=== PATIENT | female | born 1990 | race Caucasian/White ===

== ENCOUNTER 2017-02-11 09:11 | Inpatient (IN) | payer MEDICAID ==
[~2017-02-11] VITALS: Ht 154.9 cm; Wt 64.5 kg
[2017-02-11] MEDS ORDERED: HYDROCODONE/APAP (5/325) TAB PO PRN ×3 (09:30→23:30)
[2017-02-11] MEDS ORDERED: METHYLERGONOVINE 0.2 MG INJ IM PRN (09:30)
[2017-02-11] MEDS ORDERED: BUTORPHANOL 2 MG INJ IV PRN (09:30)
[2017-02-11] MEDS ORDERED: MISOPROSTOL 200 MCG TAB PR PRN (09:30)
[2017-02-11] MEDS ORDERED: OXYTOCIN 30 UNITS/LR 500 ML IV SCH ×3 (09:30→10:30)
[2017-02-11] MEDS ORDERED: OXYTOCIN 30 UNITS/LR 500 ML IV PRN (09:30)
[2017-02-11] MEDS ORDERED: MINERAL OIL LIGHT 10 ML VIAL TOP ONE (09:30)
[2017-02-11] MEDS ORDERED: CARBOPROST 250 MCG INJ IM PRN (09:30)
[2017-02-11] MEDS ORDERED: LIDOCAINE 1% (MPF) 30 ML INJ INJ PRN (09:30)
[2017-02-11] MEDS ORDERED: IBUPROFEN 600 MG TAB PO ONE (10:00)
[2017-02-11 10:03] VITALS: Ht 154.9 cm; Wt 64.5 kg
[2017-02-11 10:11] LABS: BASOPHILS % 0.5 % (0.0-2.0); EOSINOPHILS # 0.1 10^3/ul (0.0-0.5); EOSINOPHILS % 1.3 % (0.0-7.0); HEMATOCRIT 32.4 % (37.0-47.0); HEMOGLOBIN 11.2 g/dl (12.0-16.0); LYMPHOCYTES % 17.2 % (15.0-51.0); MEAN CORPUSCULAR HEMOGLOBIN 33.4 pg (29.0-33.0); MEAN CORPUSCULAR HGB CONC 34.6 g/dl (32.0-37.0); MEAN CORPUSCULAR VOLUME 96.7 fl (82.0-101.0); MEAN PLATELET VOLUME 12.7 fl (7.4-10.4); MONOCYTE # 0.3 10^3/ul (0.3-0.9); MONOCYTES % 5.7 % (0.0-11.0); NEUTROPHIL # 4.2 10^3/ul (1.6-7.5); NEUTROPHILS % 74.8 % (39.0-77.0); PLATELET COUNT 123 10^3/UL (140-415); RED BLOOD COUNT 3.35 10^6/ul (4.20-5.40); RED CELL DISTRIBUTION WIDTH 13.1 % (11.5-14.5); WHITE BLOOD COUNT 5.6 10^3/ul (4.8-10.8)
[2017-02-11] MEDS: LACTATED RINGER'S 1,000 ML IV SCH ×2 (10:23→15:30)
[2017-02-11] MEDS ORDERED: IBUPROFEN 600 MG TAB PO PRN (10:30)
[2017-02-11 10:31] LABS: INR 0.91; PROTIME 12.2 Sec (12.2-14.2)
[2017-02-11 10:32] LABS: PARTIAL THROMBOPLASTIN TIME 26.3 Sec (25.0-35.0)
[2017-02-11] MEDS ORDERED: AMPICILLIN 2 GM/NS (PMX) 100 ML IV ONE (11:00)
[2017-02-11] MEDS ORDERED: LACTATED RINGER'S 1,000 ML IV PRN (12:00)
[2017-02-11] MEDS ORDERED: FENTAnyl 2MCG/ML-ROPIV 0.2% 100 ML ONE (12:22)
[2017-02-11] MEDS ORDERED: FENTAnyl 2MCG/ML-ROPIV 0.2% 100 ML BAG EPI SCH (13:00)
[2017-02-11] MEDS ORDERED: NALOXONE (0.4 MG/ML) INJ IV PRN (13:00)
[2017-02-11] MEDS: AMPICILLIN 1 GM/NS (PMX) 50 ML IV SCH ×2 (15:46→19:00)
[2017-02-11] MEDS ORDERED: CEFAZOLIN 2 GM/50 ML (PMX) 0 ML IVPB ONE (15:58)
--- NOTE | 2017-02-11 16:31 | HP ---
Date/Time of Note Date/Time of Note DATE: 02/11/17 TIME: 16:14 OB - History Hx of Present Free Text/Dictation 26 years old female 200 1 2 admitted to [facility] at 41 week and 3 days for induction of labor week examination on admission cervix 3 cm dilated 60% effaced vertex at -3 station having contractions every 4-6 minute with mild to moderate quality, plan of augmentation of labor discussed low dose Pitocin infusion IV drip This patient has been under the care of the [facility] and her is complicated with gestational diabetes diet-controlled Chief Complaint: 41 weeks and 3 days early labor may requireing labor augmentation Estimated Due Date: Feb 01, 2017 : 4 Para: 2 Therapeutic : 1 Care: Good Care Ultrasounds: Normal mid trimester US Obstetrical Complications: Gestational Diabetes Medical Complications: None Past Family/Social History * Past Medical, Surgical, Family and Obstetric Histories reviewed from chart. Rubella: immune RPR/VDRL: Negative GBS Status: Negative HBsAG: Negative OB Admission Exam Physical Exam HEENT: WNL Heart: Rhythm Normal Lungs: Clear, Equal Abdomen: WNL Extremities: Normal Reflexes: Normal Cervical Dilatation: 3cm Effacement: Other (60%) Station: -2 Membranes: Intact Heart Rate: 120's Accelerations: Accelerations Present Decelerations: Variable Decelerations Varibility: Moderate Contractions on Admission: >10 Minutes Apart Last 72 hours Lab Results CBC & BMP 02/11/17 09:45 OB Assessment/Plan Reason for admission: other (Labor augmentation) Other plan: This is a 26 years old female EDC of February 01, 2017 admitted to the hospital at first for induction of labor due to being postdate however on admission it was noted she is in early labor but not active, plan of trial of labor augmentation with low-dose Pitocin discussed she would like to proceed . DANYELLE GARCIA MD Feb 11, 2017 16:24
[2017-02-11 17:30] LABS: AADO2 Cord Arterial 52.6 mmHg; Arterial Cord Blood pCO2 49.2 mmHG (25-50); CBA Base Excess -6.6 mmol/L; CBA Oxygen Sat 72.5 mmHG; CBA Total Hemglobin 16.7 g/dl; Cord Blood Arterial pO2 38.2 mmHG (15.0-45.0); Fraction OxyHgb Cord Arterial 70.7 %; MODE ROOM AIR; MetHgb Cord Arterial 1.1 %; Sample Type CBA
[2017-02-11 17:41] LABS: CBV Base Excess -10.3 mmol/L; CBV COHb 0.3 %; CBV Total Hemglobin 14.9 g/dl; Cord Blood Venous AADO2 22.9 mmHg; Cord Blood Venous pO2 12.5 mmHG (15.0-45.0); MODE ROOM AIR; MetHgb Cord Venous 2.4 %; Sample Type CBV
--- NOTE | 2017-02-11 17:46 | LDN ---
Date/Time of Note Date/Time of Note DATE: 02/11/17 TIME: 17:18 Delivery Summary 26 years old was admitted at 41 weeks and 3 days for induction of labor on admission cervical dilatation was 3 cm 60% effaced vertex is -1 -2 station, cervical dilatation progress to complete presenting part at +2 station patient encouraged to push with the contraction but not able to complete the delivery of the head, due to the frequency of variable deceleration which AT time below 100 assisted vaginal delivery decided by using vacuum(kiwi) which appropriately applied ,1 attempt, successful delivery of the head ,shoulders delivered without any difficulty, baby had nuchal cord 3 times tight around the neck meconium stain, after baby was delivered cord clamped after stopped pulsation, portion of the cord sent to lab for blood gas, baby's reported 2 at first minute and 8 at 5 minutes team were present to assist the baby. Placenta spontaneous expulsion inspected complete but covered with thick meconium sent to the pathology, estimated blood loss 3-400 cc patient sustained first-degree perineal laceration and 2 small para urethral laceration which repaired 3-0 chromic catgut and 4-0 chromic catgut Assisted Vaginal Delivery: Vacuum Meconium: Thick, Particulate Episiotomy: No Estimated blood loss: 400 Sponge & Needle done & correct: Yes All needle counts correct: Yes Any foreign bodies felt in the: No Problems: Infant Delivery Information Sex Sex: female Apgars 1 Minute: 2 5 Minute: 8 Suctioning Nose & mouth suctioned at bill: Yes Delee suction performed: Yes Umbilical Cord Cord presentations: nuchal cord (3 times tight around the baby's neck) Nuchal cord present X: 3 Cord Blood was obtained: Yes DANYELLE GARCIA MD Feb 11, 2017 17:40
[2017-02-11] MEDS ORDERED: OXYCODONE/ASPIRIN (4.88/325) TAB PO ONE (19:30)
[2017-02-11 21:10] VITALS: BP 139/83; PULSE 77; RESP 19
[2017-02-11] MEDS ORDERED: ONDANSETRON 4 MG INJ IV PRN (23:30)
[2017-02-11] MEDS ORDERED: LANOLIN 7 GM TUBE TOP PRN (23:30)
[2017-02-11] MEDS ORDERED: ACETAMINOPHEN 325 MG TAB PO PRN (23:30)
[2017-02-11] MEDS ORDERED: DIBUCAINE 1% 30 GM OINT PR PRN (23:30)
[2017-02-11] MEDS ORDERED: WITCH HAZEL/GLYCERIN PAD PR PRN (23:30)
[2017-02-11] MEDS ORDERED: BENZOCAINE 20% 56 ML SPRAY TOP PRN (23:30)
[2017-02-11] MEDS ORDERED: OXYCODONE/ASPIRIN (4.88/325) TAB PO PRN ×2 (23:30)
[2017-02-12] MEDS: IBUPROFEN 600 MG TAB PO SCH ×4 (00:03→18:10)
[2017-02-12] MEDS: OXYTOCIN 30 UNITS/LR 500 ML IV SCH ×2 (00:07→04:02)
[2017-02-12 00:45] VITALS: BP 123/77; PULSE 73; RESP 19
[2017-02-12 04:45] VITALS: BP 127/63; PULSE 70; RESP 19
[2017-02-12 08:00] VITALS: BP 133/79; PULSE 80; RESP 18
[2017-02-12] MEDS ORDERED: INFLUENZA VIRUS VACCINE 0.5 ML (DISPENSING) IM* ONE (09:00)
[2017-02-12 09:19] LABS: ABNORMAL IP MESSAGE 1; BASOPHILS % 0.3 % (0.0-2.0); EOSINOPHILS % 0.5 % (0.0-7.0); HEMATOCRIT 29.1 % (37.0-47.0); HEMOGLOBIN 9.9 g/dl (12.0-16.0); LYMPHOCYTES # 0.8 10^3/ul (0.8-2.9); LYMPHOCYTES % 11.3 % (15.0-51.0); MEAN CORPUSCULAR HEMOGLOBIN 32.9 pg (29.0-33.0); MEAN CORPUSCULAR VOLUME 96.7 fl (82.0-101.0); MEAN PLATELET VOLUME 12.4 fl (7.4-10.4); MONOCYTE # 0.4 10^3/ul (0.3-0.9); MONOCYTES % 5.1 % (0.0-11.0); NEUTROPHIL # 6.2 10^3/ul (1.6-7.5); NEUTROPHILS % 82.4 % (39.0-77.0); PLATELET COUNT 96 10^3/UL (140-415); RED BLOOD COUNT 3.01 10^6/ul (4.20-5.40); RED CELL DISTRIBUTION WIDTH 13.1 % (11.5-14.5); WHITE BLOOD COUNT 7.5 10^3/ul (4.8-10.8)
[2017-02-12 09:24] LABS: POSITIVE DIFF @See below
[2017-02-12] MEDS: SENNA/DOCUSATE NA (8.6MG/50MG) TAB PO SCH ×2 (10:07→21:55)
--- NOTE | 2017-02-12 12:50 | QN ---
Documentation Comment Post normal vaginal delivery day 1 Afebrile Vital signs are stable Abdomen soft Uterus firm Lochia normal Extremity normal Hemoglobin 9.9, hematocrit 29.1, platelet 96,000 DANYELLE GARCIA MD Feb 12, 2017 12:50
[2017-02-12 16:00] VITALS: BP 110/55; PULSE 77; RESP 18
[2017-02-12 20:00] VITALS: BP 118/76; PULSE 93; RESP 20
[2017-02-13] MEDS: IBUPROFEN 600 MG TAB PO SCH ×3 (00:47→12:34)
[2017-02-13 04:00] VITALS: BP 107/63; PULSE 78; RESP 19
[2017-02-13 08:00] VITALS: BP 130/62; RESP 18
[2017-02-13] MEDS: SENNA/DOCUSATE NA (8.6MG/50MG) TAB PO SCH (08:53)
[2017-02-13] MEDS ORDERED: MEASLES,MUMPS,RUBELLA VACCINE INJ SC* ONE (09:00)
--- NOTE | 2017-02-13 10:47 | PD.PPDC ---
NEW GRAD RN Discharge Instruction Condition Patient Condition: Good Diet Diet: Resume Regular Diet Activity/Restrictions Restrictions: No Exercising No Lifting No Driving No Sexual Activity Nothing in the Vagina No [place] No Tampons, douche Follow-up Follow-up with Physician: 2, Week/Weeks Provider Information: instruction given recommended to make appointment to be seen at the clinic in 2 weeks for check Return to clinic for UNIT MANAGER Instructions: Fever greater than 101 Chills Worsening abdominal pain Excessive Vaginal Bleeding More than 2 pads per hour Unable to tolerate diet OB Instructions: Breast Tenderness Depression Blurried Vision Headache DANYELLE GARCIA MD Feb 13, 2017 10:47
--- NOTE | 2017-02-13 10:49 | DS ---
Date/Time of Note Date/Time of Note DATE: 02/13/17 TIME: 10:47 Discharge Summary Admission/Discharge Info Admit Date/Time Feb 11, 2017 at 09:11 Discharge Date/Time February 13, 2017 at 10:50 AM Discharge Diagnosis Day 2 post normal vaginal delivery Patient Condition: Good Procedures Normal vaginal delivery Hx of Present Illness Term admitted in labor Hospital Course Satisfactory uneventful Follow-up Plan instruction given recommended to make appointment to be seen at the clinic in 2 weeks Primary Care Provider Not On Staff Doctor Time spent on discharge: < 30 minutes DANYELLE GARCIA MD Feb 13, 2017 10:49
== END 2017-02-13 15:49 | disposition home or self-care (01) | DRG 775 ==
LOC: L-D 09:11 → PP1 21:34
PROVIDERS: ADMIT Obstetrics & Gynecology; ATTEND Obstetrics & Gynecology
PROC: 10D07Z6 Extraction of Products of Conception, Vacuum, Via Natural or Artificial Opening (ICD-10-PCS; principal; 2017-02-11)
PROC: 3E0P3VZ Introduction of Hormone into Female Reproductive, Percutaneous Approach (ICD-10-PCS; 2017-02-11)
DX: O48.0 Post-term pregnancy (principal); O24.429 Gestational diabetes mellitus in childbirth, unspecified control; Z3A.41 41 weeks gestation of pregnancy; Z37.0 Single live birth
CPT/HCPCS: 36415; 36600; 62319; 82803; 82947; 85025; 85610; 85730; 86592; 86900; 86901; 90686; J0290; J0690; J2210; J2590; J3010; J7120

== ENCOUNTER 2018-04-29 02:00 | Inpatient (IN) | payer MEDICAID ==
[~2018-04-29] VITALS: Ht 154.9 cm; Wt 68.0 kg
[2018-04-29] MEDS ORDERED: OXYTOCIN 30 UNITS/LR 500 ML IV ONE (02:14)
[2018-04-29] MEDS ORDERED: LIDOCAINE 1% (MPF) 30 ML INJ ONE (02:14)
[2018-04-29] MEDS ORDERED: AMPICILLIN 2 GM/NS (PMX) 100 ML ONE (02:16)
[2018-04-29 02:19] VITALS: BP 129/79; PULSE 82; RESP 20
[2018-04-29] MEDS: LACTATED RINGER'S 1,000 ML IV SCH ×2 (02:27→13:37)
[2018-04-29] MEDS ORDERED: OXYTOCIN 30 UNITS/LR 500 ML IV SCH ×2 (02:30)
[2018-04-29] MEDS ORDERED: LIDOCAINE 1% (MPF) 30 ML INJ INJ PRN (02:30)
[2018-04-29] MEDS ORDERED: METHYLERGONOVINE 0.2 MG INJ IM PRN ×2 (02:30→04:30)
[2018-04-29] MEDS ORDERED: AMPICILLIN 2 GM/NS (PMX) 100 ML IV ONE (02:30)
[2018-04-29] MEDS ORDERED: MISOPROSTOL 200 MCG TAB PR PRN ×2 (02:30→04:30)
[2018-04-29] MEDS ORDERED: BUTORPHANOL 2 MG INJ IV PRN (02:30)
[2018-04-29] MEDS ORDERED: OXYTOCIN 30 UNITS/LR 500 ML IV PRN ×2 (02:30→04:30)
[2018-04-29] MEDS ORDERED: CARBOPROST 250 MCG INJ IM PRN ×2 (02:30→04:30)
[2018-04-29] MEDS ORDERED: MINERAL OIL LIGHT 10 ML VIAL ONE (03:08)
[2018-04-29] MEDS ORDERED: MINERAL OIL LIGHT 10 ML VIAL TOP ONE (03:30)
--- NOTE | 2018-04-29 04:17 | HP ---
Date/Time of Note Date/Time of Note DATE: 04/29/18 TIME: 04:15 OB - History Hx of Present Free Text/Dictation 27-year-old with single intrauterine at 39 weeks and 2 days complaining of uterine contractions. She states good movement. She denies nausea, vomiting, shortness of breath, chest pain, headache, visual changes, vaginal bleeding or LOF. Chief Complaint: Uterine contraction Estimated Due Date: May 04, 2018 : 5 Para: 3 Spontaneous : 1 Therapeutic : 0 Care: Good Care Ultrasounds: Normal mid trimester US Obstetrical Complications: None Medical Complications: None Past Family/Social History * Past Medical, Surgical, Family and Obstetric Histories reviewed from chart. Blood Type: O+ Rubella: immune RPR/VDRL: Negative GBS Status: Positive HBsAG: Negative OB Admission Exam Vital Signs Vital Signs Vital Signs Date Temp Pulse Resp B/P (MAP) Pulse Ox O2 O2 Flow FiO2 Time Delivery Rate 04/29/18 97.8 82 20 129/79 Room Air 02:19 (96) Physical Exam HEENT: WNL Heart: Rhythm Normal Lungs: Clear Abdomen: WNL Extremities: Normal Cervical Dilatation: 6cm Effacement: 75% Station: -3 Membranes: Intact Heart Rate: 140's Accelerations: Accelerations Present Decelerations: No Decelerations Varibility: Moderate Contractions on Admission: < 5 Minutes Apart Intensity: Moderate Last 72 hours Lab Results CBC & BMP 04/29/18 02:20 OB Assessment/Plan Other plan: 27-year-old 013 at 39 weeks and 2 days in active labor - FHR: No sign of metabolic acidosis- Category I - Continuous EFM, toco - CBC, blood type and screen - Analgesia options with R/B/A discussed in detail with patient - Epidural per patient request - Please see the orders - O+/Rubella: Immune - GBS: Positive Admission, procedures, expectations, risks and possible complications have been discussed in detail with the patient. Risk of vaginal delivery including but not limited to bleeding, infection, cervical laceration, placental retention, injury to fetus, blood transfusion, blood transfusion related infection, risk of anesthesia, adhesion, cervical laceration, episiotomy/laceration, possible delivery with risk of bleeding, infection, injury to other organs (bowel, bladder, ureter, vessels, nerves), injury to fetus, blood transfusion, blood transfusion related infection, risk of anesthesia, scar and hernia formation, needs for future , removal of uterus or any other indicated surgery discussed with the patient. She expressed understanding and repeats the risks. All of her questions were answered. She signed the informed consent. PHYSICIAN'S VERIFICATION OF INFORMED CONSENT The patient was counseled regarding the procedure, its indications, risks, potential complications and alternatives and any questions were answered. Consent was obtained. PLANNED PROCEDURE/TREATMENT: Vaginal delivery, episiotomy, repair of laceration possible delivery BRIAN CELIS Apr 29, 2018 04:17
[2018-04-29] MEDS ORDERED: DEXTROSE 5%-LR 1,000 ML IV SCH (04:20)
--- NOTE | 2018-04-29 04:20 | LDN ---
Date/Time of Note Date/Time of Note DATE: 04/29/18 TIME: 04:17 Delivery Summary 27-year-old at 39 weeks and 2 days delivered a viable male over right mediolateral episiotomy. Nose and mouth suctioned. Rest of body delivered. Cord clamped and cut after stopping pulsation. Baby given to the nurse. Placenta delivered spontaneously and intact with three-vessel cord. Laceration repaired with 2-0 Vicryl. Patient tolerated procedure well Time of delivery 03:21 Weight 9 pound and 1 ounces - 4120 g Height 21.5 inches 8 at 1 minutes and 9 at 5 minutes EBL 300 mm Weeks of Gestation 39 weeks and 2 days Placenta Delivered: Spontaneously Episiotomy: Yes Indication for episiotomy To facilitate vaginal delivery Anesthesia type: Local Estimated blood loss: 300 Sponge & Needle done & correct: Yes All needle counts correct: Yes Any foreign bodies felt in the: No Infant Delivery Information Sex Sex: male Apgars 1 Minute: 8 5 Minute: 9 10 Minute: 10 Suctioning Nose & mouth suctioned at bill: Yes Umbilical Cord Umbilical cord with: 3 Vessels Cord presentations: no nuchal cord Cord Blood was obtained: Yes Mother & Baby Disposition Disposition Mom & Baby to Maternity; Good: Yes BRIAN CELIS Apr 29, 2018 04:20
--- NOTE | 2018-04-29 04:25 | TRIAGE ---
OB Triage Datetime Report Generated by CPN: 04/29/2018 04:25 Datetime: 04/29/2018 04:23 Stage of : Recovery Pain Assessment Pain Scale: 3 Pain Presence: Constant Pain Type: Burning; Cramping; Sharp Pain Location: Abdomen; Perineum Pain Relief Measures: Comfort Measures Datetime: 04/29/2018 04:07 Stage of : Recovery Pain Assessment Pain Scale: 3 Pain Presence: Constant Pain Type: Burning; Cramping; Sharp Pain Location: Abdomen; Perineum Pain Relief Measures: Comfort Measures Datetime: 04/29/2018 04:01 Stage of : Recovery Datetime: 04/29/2018 03:59 Stage of : Recovery (Annotations: DR. HADADIAN AT BEDSIDE. ORDERS FOR CYTOTOC 400MCG SUBLI NGUAL AND 600MCG RECTALLY RECEIVED) Datetime: 04/29/2018 03:47 Stage of : Recovery Temperature Route: Oral Pain Assessment Pain Scale: 3 Pain Presence: Constant Pain Type: Burning; Cramping; Sharp Pain Location: Abdomen; Perineum Pain Relief Measures: Comfort Measures Pain Assessment Comments: PT REFUSES PAIN MEDICATION AT THIS TIME Datetime: 04/29/2018 03:21 Stage of : Labor Datetime: 04/29/2018 03:10 Stage of : Labor Labor Evaluation Frequency: 2-4 Monitor Mode: External Duration (sec)2399: 70-110 Quality: Strong Pattern: Normal: <= 5 Contractions in 10 Minutes Resting Tone Connell: Relaxed Interventions: Oxygen Applied; IV Bolus Heart Rate FHR Baseline Rate: 135 Monitor Mode: External US Variability: Moderate 6-25 bpm Decelerations: Early; Variable Category: Category II Datetime: 04/29/2018 02:52 Stage of : Labor Labor Evaluation Frequency: 3-5 Monitor Mode: External Duration (sec)2399: 90-120 Quality: Strong Pattern: Normal: <= 5 Contractions in 10 Minutes Resting Tone Connell: Relaxed Interventions: Oxygen Applied; IV Bolus Heart Rate FHR Baseline Rate: 140 Monitor Mode: External US Variability: Moderate 6-25 bpm Decelerations: Early; Variable Category: Category II Datetime: 04/29/2018 02:48 Stage of : Labor Membrane Status: Ruptured Membranes Ruptured Date/Time: 04/29/2018 02:48 Membranes Rupture Method: Spontaneous Amniotic Fluid Color: Clear Amniotic Fluid Amount: Small Amniotic Fluid Odor: None Datetime: 04/29/2018 02:46 Stage of : Labor Assessment Type: Admission Assessment Vaginal Bleeding: None Maternal Assessment Level of Consciousness: Fully Conscious DTR's/Clonus: DTRs 2+; No Clonus Headache: Denies Blurred Vision: No Respiratory Effort: Unlabored; Regular Rhythm; Equal Expansion Breath Sounds, Left: Clear and Equal Breath Sounds, Right: Clear and Equal Nausea/Vomiting: Denies RUQ Epigastric Pain: Denies Lower Extremities Edema: None Upper Extremities Edema: None Facial Edema: None Fall Risk Assessment History of Falling: (0) No Secondary Diagnosis: (0) No Ambulatory Aid: (0) Bedrest/Nurse Assist IV Therapy: (0) No Gait: (0) Normal/Bedrest/Immobile Mental Status: (0) Oriented to Own Ability Fall Score: 0 Fall Risk Score Definition: No Risk: No action required Labor Evaluation Frequency: 5-6 Monitor Mode: External Duration (sec)2399: 110-130 Quality: Strong Pattern: Normal: <= 5 Contractions in 10 Minutes Resting Tone Connell: Relaxed Heart Rate FHR Baseline Rate: 140 Monitor Mode: External US Variability: Minimal - Undetectable to <=5 bpm Accelerations: 15X15 Decelerations: None Pain Assessment Pain Scale: 8 Pain Presence: Intermittent Pain Type: Contraction Pain Location: Abdomen Pain Goal: 4 Membrane Status: Bulging Datetime: 04/29/2018 02:30 Stage of : Labor Maternal Assessment Level of Consciousness: Fully Conscious DTR's/Clonus: DTRs 2+; No Clonus Headache: Denies Breath Sounds, Left: Clear and Equal Breath Sounds, Right: Clear and Equal Nausea/Vomiting: Denies RUQ Epigastric Pain: Denies Labor Evaluation Frequency: 5-6 Monitor Mode: External Duration (sec)2399: 110-130 Quality: Strong Pattern: Normal: <= 5 Contractions in 10 Minutes Resting Tone Connell: Relaxed Heart Rate FHR Baseline Rate: 140 Monitor Mode: External US Variability: Minimal - Undetectable to <=5 bpm Accelerations: 15X15 Decelerations: None Category: Category II Pain Assessment Pain Scale: 8 Pain Presence: Intermittent Pain Type: Contraction Pain Location: Abdomen Pain Goal: 4 Vaginal Exam Dilatation (cms): 10.0 Effacement (%): 100 Station: 0 Exam By: ROSELYN GILLESPIE Membrane Status: Bulging Datetime: 04/29/2018 02:22 Time of Arrival: 04/29/2018 01:50 EGA: 39.2 Arrived By: Wheelchair Arrived From: Home Chief Complaint: CONTRACTIONS SINCE 2099 Movement: Present Contractions: Regular Time Contractions Began: 04/28/2018 21:00 Contractions: Q 5 MIN Rupture of Membranes: Denies Vaginal Discharge: Denies Time Provider Notified: 04/29/2018 02:03 Provider Notified: HADADIAN Initial Plan: EFM, VE Datetime: 04/29/2018 02:15 Effacement (%): 90 Station: -1 Membrane Status: Intact Datetime: 04/29/2018 02:14 Vaginal Exam Dilatation (cms): 6.0 Datetime: 04/29/2018 02:08 Vaginal Exam Dilatation (cms): 6.0 Effacement (%): 90 Station: -1 Exam By: JUAN Vaginal Bleeding: None Cervix, Consistency: Soft Cervix, Position: Anterior Presentation 'A': Cephalic Datetime: 04/29/2018 02:00 Assessment Type: Triage Maternal Assessment Level of Consciousness: Fully Conscious DTR's/Clonus: DTRs 2+; No Clonus Headache: Denies Blurred Vision: No Respiratory Effort: Unlabored; Regular Rhythm; Equal Expansion Breath Sounds, Left: Clear and Equal Breath Sounds, Right: Clear and Equal Nausea/Vomiting: Denies RUQ Epigastric Pain: Denies Lower Extremities Edema: None Upper Extremities Edema: None Facial Edema: None Fall Risk Assessment History of Falling: (0) No Secondary Diagnosis: (0) No Ambulatory Aid: (0) Bedrest/Nurse Assist IV Therapy: (0) No Gait: (0) Normal/Bedrest/Immobile Mental Status: (0) Oriented to Own Ability Fall Score: 0 Fall Risk Score Definition: No Risk: No action required
[2018-04-29] MEDS ORDERED: OXYCODONE/ASPIRIN (4.88/325) TAB PO PRN (04:30)
[2018-04-29] MEDS ORDERED: DIBUCAINE 1% 30 GM OINT TOP PRN (04:30)
[2018-04-29] MEDS ORDERED: BENZOCAINE 20% 56 ML SPRAY TOP PRN (04:30)
[2018-04-29] MEDS ORDERED: LANOLIN HPA 1 PKT TOP PRN (04:30)
[2018-04-29] MEDS ORDERED: WITCH HAZEL/GLYCERIN PAD PR PRN (04:30)
[2018-04-29] MEDS ORDERED: ZOLPIDEM 5 MG TAB PO PRN (04:30)
[2018-04-29] MEDS ORDERED: ONDANSETRON 4 MG INJ IV PRN (04:30)
[2018-04-29] MEDS ORDERED: ACETAMINOPHEN 325 MG TAB PO PRN (04:30)
[2018-04-29] MEDS ORDERED: DIPHENHYDRAMINE 50 MG INJ IV PRN (04:30)
[2018-04-29] MEDS ORDERED: ONDANSETRON 4 MG INJ IV ONE (06:27)
[2018-04-29] MEDS ORDERED: AMPICILLIN 1 GM/NS (PMX) 50 ML IV SCH (06:30)
[2018-04-29] MEDS ORDERED: OXYCODONE/ASPIRIN (4.88/325) TAB PO ONE (06:30)
[2018-04-29] MEDS: LACTATED RINGER'S 1,000 ML IV* SCH ×3 (08:33→20:15)
[2018-04-29] MEDS ORDERED: SOD CHLORIDE 0.9% 1,000 ML IV STA (08:45)
[2018-04-29] MEDS ORDERED: CEFAZOLIN 2 GM/50 ML (PMX) 50 ML IVPB ONE (09:52)
[2018-04-29] MEDS ORDERED: CEFAZOLIN 2 GM/50 ML (PMX) 50 ML IVPB SCH (09:56)
--- NOTE | 2018-04-29 10:14 | QN ---
Documentation Comment I was called to evaluate the patient for hemorrhage Total EBL 300cc reported at delivery Recovery room blood loss 644 cc Patient had received 1000 mcg of Cytotec, Methergine x3 doses and Hemabate x1 dose Procedure Note Patient was prepped and draped Patient was given Stadol for pain management Ancef 2 g IV was given for prophylaxis Vila catheter was placed Episiotomy repair was noted to be intact A weighted speculum was placed in the vagina Multiple blood clots were removed manually from the vagina No vaginal lacerations were noted Ring forceps were applied all around the cervix and the integrity of the cervix was confirmed Fundus was palpated to be firm Total blood clots evacuated measured at 310 cc No further bleeding was noted Patient tolerated the procedure well Total IVF 2000 Urine output 310 cc Total blood loss 1254 cc ( Delivery 300cc + Recovery Room 644cc + 310 cc blood clots evacuated) JOSEPH PECK MD Apr 29, 2018 10:14
[2018-04-29] MEDS: IBUPROFEN 600 MG TAB PO SCH ×4 (12:00→23:42)
[2018-04-29 15:00] VITALS: BP 106/64; PULSE 72; RESP 17
[2018-04-29 20:30] VITALS: BP 93/60; PULSE 88; RESP 18
[2018-04-30 00:20] VITALS: BP 102/64; PULSE 84; RESP 17
[2018-04-30 03:45] VITALS: BP 95/52; PULSE 88; RESP 17
[2018-04-30] MEDS: LACTATED RINGER'S 1,000 ML IV* SCH ×2 (04:25→12:20)
[2018-04-30] MEDS: IBUPROFEN 600 MG TAB PO SCH ×3 (05:42→17:45)
[2018-04-30] MEDS ORDERED: MEDROXYPROGESTERONE 150 MG INJ SYG IM ONE (06:30)
[2018-04-30 07:40] VITALS: BP 107/59; PULSE 81; RESP 16
[2018-04-30] MEDS ORDERED: MEDROXYPROGESTERONE 150 MG INJ SYG IM SCH (09:00)
[2018-04-30] MEDS: SENNA/DOCUSATE NA (8.6MG/50MG) TAB PO PRN (09:25)
[2018-04-30] MEDS: FERROUS SULFATE (EC) 325 MG TAB PO SCH ×2 (11:03→21:25)
[2018-04-30 16:06] VITALS: BP 118/69; PULSE 82; RESP 16
--- NOTE | 2018-04-30 18:39 | PN ---
Date/Time of Note Date/Time of Note DATE: 04/30/18 TIME: 18:33 OB Subjective Subjective Subjective PPD# 1 Patient is doing well. She denies nausea, vomiting, shortness of breath, chest pain, headache. She has been ambulating without difficulty, tolerating regular diet. Pain is well controlled on current medications OB Objective Objective Objective Vital Signs Date Temp Pulse Resp B/P (MAP) Pulse Ox O2 O2 Flow FiO2 Time Delivery Rate 04/30/18 98.7 82 16 118/69 Room Air 16:06 (85) 04/30/18 97 00:20 General: AAO X 3, comfortable, NAD, appropriate mood and affect. ABD: +BS. Soft, non-tender. Uterus 2 cm below umbilicus Flank: No CVA tenderness (B/L) LE: Mild edema. No clubbing, cyanosis, thigh or calf tenderness (B/L). Homans 'sign is negative OB Assessment/Plan Other plan: 27-year-old s/p normal vaginal delivery at 39 weeks and 2-day with hemorrhage. PPD#1 - AF, VSS - Baby is doing well, at bed side. She is bonding well - Contraception methods with R/B/A/FR discussed - Continue care - Discharge home tomorrow - Rx and instruction given - Follow up in 2 and 6 weeks at clinic 2) Acute anemia due to hemorrhage. Last hemoglobin is 7.1. She has no symptom. ferrous sulfate 325 mg 3 times daily for 1 month and then 2 tablets daily for another 3 months ordered. BRIAN CELIS Apr 30, 2018 18:39
--- NOTE | 2018-04-30 18:40 | DS ---
Date/Time of Note Date/Time of Note DATE: 04/30/18 TIME: 18:39 Obstetrical Discharge Record Final Diagnosis Final Diagnosis: Term delivered Other Final Diagnosis 27-year-old s/p normal vaginal delivery at 39 weeks and 2-day with hemorrhage. PPD#1. course was remarkable for hemorrhage. She is currently doing well. She has no symptom. She is ambulating and tolerating regular diet. She is voiding without difficulty. Pain is controlled on current medication. - AF, VSS - Baby is doing well, at bed side. She is bonding well - Contraception methods with R/B/A/FR discussed - Continue care - Discharge home tomorrow - Rx and instruction given - Follow up in 2 and 6 weeks at clinic 2) Acute anemia due to hemorrhage. Last hemoglobin is 7.1. She has no symptom. ferrous sulfate 325 mg 3 times daily for 1 month and then 2 tablets daily for another 3 months ordered. Vaginal Delivery Obstetrical Delivery: Spontaneous Condition on Discharge Physical Assessment Last Vitals: Vital Signs Date Temp Pulse Resp B/P (MAP) Pulse Ox O2 O2 Flow FiO2 Time Delivery Rate 04/30/18 98.7 82 16 118/69 Room Air 16:06 (85) 04/30/18 97 00:20 Voiding: Yes Bowel Movement: Yes Breast: Soft, non-tender Fundus: Firm Calf Tenderness: No Patient Condition: Stable BRIAN CELIS Apr 30, 2018 18:40
[2018-04-30] MEDS ORDERED: CYANOCOBALAMIN 1000 MCG INJ SC ONE (19:00)
[2018-04-30 19:40] VITALS: BP 95/50; PULSE 84; RESP 17
[2018-05-01] MEDS: IBUPROFEN 600 MG TAB PO SCH ×3 (00:46→11:23)
[2018-05-01 03:55] VITALS: BP 115/56; PULSE 74; RESP 18
[2018-05-01 07:45] VITALS: BP 109/54; PULSE 74; RESP 18
[2018-05-01] MEDS ORDERED: MEASLES,MUMPS,RUBELLA VACCINE INJ SC* ONE (09:00)
[2018-05-01] MEDS ORDERED: DIPHTH/TET/ACEL PERTUSS (ADULT) 0.5 ML VIAL IM* ONE (09:00)
[2018-05-01] MEDS: FERROUS SULFATE (EC) 325 MG TAB PO SCH (10:14)
[2018-05-01] MEDS: SENNA/DOCUSATE NA (8.6MG/50MG) TAB PO PRN (10:14)
== END 2018-05-01 13:30 | disposition home or self-care (01) | DRG 806 ==
LOC: L-D 02:00 → OBT 02:00 → L-D 02:03 → OBT 02:03 → PP1 14:32
PROVIDERS: ADMIT Obstetrics & Gynecology; ATTEND Obstetrics & Gynecology
PROC: 10E0XZZ Delivery of Products of Conception, External Approach (ICD-10-PCS; principal; 2018-04-29)
PROC: 0W8NXZZ Division of Female Perineum, External Approach (ICD-10-PCS; 2018-04-29)
PROC: 0UCG7ZZ Extirpation of Matter from Vagina, Via Natural or Artificial Opening (ICD-10-PCS; 2018-04-29)
DX: O99.824 Streptococcus B carrier state complicating childbirth (principal); D62 Acute posthemorrhagic anemia; O72.1 Other immediate postpartum hemorrhage; O90.81 Anemia of the puerperium; Z3A.39 39 weeks gestation of pregnancy; Z37.0 Single live birth; Z23 Encounter for immunization
CPT/HCPCS: 85025; 85610; 85730; 86592; 86850; 86900; 86901; 90715; 99464; A4310; G0463; J0290; J0595; J0690; J1050; J2210; J2405; J2590; J3420; J7030; J7120; J7121